=== PATIENT | female | born 1985 | race Two or more races ===

== ENCOUNTER 2023-03-24 08:04 | Emergency (ER) | payer MEDICAID ==
[~2023-03-24] VITALS: Ht 154.9 cm; Wt 66.2 kg
[2023-03-24 10:34] LABS: CALCIUM, SERUM 8.6 mg/dL (8.5-10.1); CARBON DIOXIDE 22 mmol/L (21-32); CHLORIDE 103 mmol/L (98-107); CREATININE 0.6 mg/dL (0.6-1.3); GLUCOSE 100 mg/dL (74-106); POTASSIUM 3.6 mmol/L (3.5-5.1); SODIUM SERUM 135 mmol/L (136-145); UREA NITROGEN, BLOOD 12 mg/dL (7-18)
[2023-03-24 10:39] LABS: ALANINE AMINOTRANSFERASE 24 U/L (12-78); ALBUMIN 3.5 g/dL (3.4-5.0); ALKALINE PHOSPHATASE 72 U/L (46-116); APPEARANCE,URINE CLEAR (CLEAR); ASPARTATE AMINOTRANSFERASE 14 U/L (15-37); BILIRUBIN,TOTAL 0.2 mg/dL (0.2-1.0); BILIRUBIN,URINE NEGATIVE (NEGATIVE); BLOOD, URINE TRACE-INTA Ery/uL (NEGATIVE); COLOR,URINE YELLOW (YELLOW); KETONES,URINE NEGATIVE (NEGATIVE); LEUKOCYTE ESTERASE ,URINE TRACE (NEGATIVE); LIPASE 55 U/L (16-77); NITRITE, URINE NEGATIVE (NEGATIVE); PH,URINE 6.5 (5.0-8.0); PROTEIN,URINE NEGATIVE (NEGATIVE); TOTAL PROTEIN, SERUM 8.4 g/dL (6.4-8.2); UGLUCOSE NEGATIVE (NEGATIVE); UROBILINOGEN,URINE 0.2 EU/dL (0.2)
[2023-03-24 10:45] LABS: BASOPHILS % (AUTO) 0.6 % (0.0-2.0); EOSINOPHILS % (AUTO) 0.7 % (0.0-6.0); HEMATOCRIT 33 % (33-45); HEMOGLOBIN 10.6 g/dL (11.5-14.8); LYMPHOCYTES # (AUTO) 2.3 K/uL (0.8-4.8); LYMPHOCYTES % (AUTO) 32.5 % (20.0-44.0); MEAN CORPUSCULAR HEMOGLOBIN 24 PG (26.0-33.0); MEAN CORPUSCULAR HGB CONC 32 g/dl (31.0-36.0); MEAN CORPUSCULAR VOLUME 73 fL (82-100); MONOCYTES # (AUTO) 0.5 K/uL (0.1-1.30); NEUTROPHILS # (AUTO) 4.1 K/uL (1.8-8.9); NEUTROPHILS % (AUTO) 59.2 % (43.0-81.0); PLATELET COUNT (AUTO) 95 K/uL (150-450); RED BLOOD CELL COUNT(AUTO) 4.48 MIL/uL (4.0-5.2); RED CELL DISTRIBUTION WIDTH 16.6 % (11.5-15.0)
[2023-03-24 10:47] LABS: PREGNANCY TEST URINE QUAL NEGATIVE (NEGATIVE)
[2023-03-24 10:50] LABS: BILIRUBIN,DIRECT < 0.1 mg/dL (0.0-0.2)
[2023-03-24 12:35] LABS: ADD URINE CULTURE NO; BACTERIA,URINE Few /HPF (None Seen); RBC,URINE 0-2 /HPF (0-2); SQUAMOUS EPITHELIAL CELL,UR Few /HPF (None Seen); WBC,URINE 0-2 /HPF (0-3)
[2023-03-24] MEDS ORDERED: PHEN1SUP RC (12:50)
[2023-03-24 13:20] VITALS: BP 124/79; TEMP 98; O2SAT 97
[2023-03-24 13:37] LABS: ANISOCYTOSIS 1+; PLATELET ESTIMATE DECRE
[2023-03-24 13:38] LABS: OVALOCYTES 1+; TEAR DROP CELLS OCC
== END 2023-03-24 13:21 | disposition home or self-care (01) ==
LOC: ER 08:04
DX: K62.5 Hemorrhage of anus and rectum (principal); K62.89 Other specified diseases of anus and rectum; Z79.899 Other long term (current) drug therapy
CPT/HCPCS: 36415; 80048-TC; 80076-TC; 81001; 83690-TC; 84703-TC; 85025-TC

== ENCOUNTER 2025-01-07 04:25 | Emergency (ER) | payer MEDICAID ==
[~2025-01-07] VITALS: Ht 154.9 cm; Wt 67.6 kg
[~2025-01-07 04:25] MED LIST: PHEN1SUP RC
[2025-01-07] MEDS ORDERED: PANTOPRAZOLE 40 MG VIAL ONE (05:05)
[2025-01-07] MEDS ORDERED: ONDANSETRON HCL/PF 4 MG/2 ML VIAL ONE (05:05)
[2025-01-07 05:14] LABS: PLATELET COUNT (AUTO) 166 K/uL (150-450); RED BLOOD CELL COUNT(AUTO) 4.33 MIL/uL (4.0-5.2); RED CELL DISTRIBUTION WIDTH 18.6 % (11.5-15.0); WHITE BLOOD COUNT (AUTO) 9.0 K/uL (4.3-11.0)
[2025-01-07] MEDS: IV NS 0.9% 1,000 ML BAG IV ONE (05:23)
[2025-01-07] MEDS: PANTOPRAZOLE 40 MG VIAL IV ONE (05:23)
[2025-01-07] MEDS: ONDANSETRON HCL/PF 4 MG/2 ML VIAL IV ONE (05:24)
[2025-01-07 05:26] LABS: ASPARTATE AMINOTRANSFERASE 12 U/L (15-37); CALCIUM, SERUM 8.5 mg/dL (8.5-10.1); CREATININE 0.5 mg/dL (0.6-1.3); SODIUM SERUM 135 mmol/L (136-145); TOTAL PROTEIN, SERUM 7.7 g/dL (6.4-8.2); UREA NITROGEN, BLOOD 16 mg/dL (7-18)
[2025-01-07 05:28] LABS: LACTIC ACID 0.7 mmol/L (0.4-2.0)
[2025-01-07] MEDS ORDERED: ONDA4TAB5 PO (05:36)
[2025-01-07] MEDS ORDERED: PANT40TA2 PO (05:36)
[2025-01-07] MEDS ORDERED: IBUP-2314 PO (05:37)
[2025-01-07] MEDS ORDERED: ACET-3102 PO (05:37)
[2025-01-07 05:38] LABS: APPEARANCE,URINE CLEAR (CLEAR); BLOOD, URINE 1+ Ery/uL (NEGATIVE); LEUKOCYTE ESTERASE ,URINE NEGATIVE (NEGATIVE); NITRITE, URINE NEGATIVE (NEGATIVE); UGLUCOSE NEGATIVE (NEGATIVE)
[2025-01-07 05:44] LABS: ADD URINE CULTURE NO; PREGNANCY TEST URINE QUAL NEGATIVE (NEGATIVE); SQUAMOUS EPITHELIAL CELL,UR Few /HPF (None Seen)
[2025-01-07] MEDS ORDERED: OXYC5TAB3 PO (05:50)
[2025-01-07] MEDS ORDERED: METR500T PO (05:51)
[2025-01-07] MEDS ORDERED: AMOX-430 PO (05:51)
[2025-01-07] MEDS ORDERED: MORPHINE SULFATE INJ 4 MG/ML DISP.SYRIN ONE (05:55)
[2025-01-07] MEDS: MORPHINE SULFATE INJ 2 MG/ML DISP.SYRIN IV ONE (05:59)
[2025-01-07 07:01] VITALS: BP 130/80; TEMP 98; O2SAT 100
== END 2025-01-07 07:01 | disposition home or self-care (01) ==
LOC: ER 04:30
DX: K80.70 Calculus of gallbladder and bile duct without cholecystitis without obstruction (principal); R10.11 Right upper quadrant pain; R11.0 Nausea; Z79.1 Long term (current) use of non-steroidal anti-inflammatories (NSAID); Z79.899 Other long term (current) drug therapy
CPT/HCPCS: 99285; 96374; 76705; 96375; 96361; 85025; 83605; 83690; 83735; 84703; 81001; 36415; 80053; 86140; J2270; J2405; J7030; J2470